=== PATIENT | female | born 1970 | race Caucasian/White ===

== ENCOUNTER 2022-02-17 13:24 | Day surgery (SDC) | payer MEDICARE ==
[2022-02-17] MEDS ORDERED: BUPIVACAINE 0.5% VIAL IJ ONE (13:25)
[2022-02-17] MEDS ORDERED: Depo-Medrol 40 MG/ML IM ONE (13:25)
[2022-02-17] MEDS ORDERED: Lactated Ringers 1,000 ML IV ONE (15:37)
[2022-02-17] MEDS ORDERED: DIPRIVAN 200 MG/20 ML IV ONE (16:09)
--- NOTE | 2022-02-17 18:51 | XRAY ---
12 seconds fluoroscopy time in surgery for intra-articular injection of the left shoulder.
--- NOTE | 2022-02-17 18:51 | XRAY ---
Indication: Left shoulder injection. Intraoperative fluoroscopy provided for 12 seconds. Single digital spot image submitted for interpretation demonstrates needle tip projecting over the left glenohumeral joint superiorly. Small amount of contrast injected for needle tip placement. Correlate with intraoperative findings/report.
== END 2022-02-17 16:33 | disposition home or self-care (01) ==
LOC: SDC-PAIN 13:24
PROVIDERS: ATTEND Psychiatry & Neurology Pain Medicine
DX: M19.012 Primary osteoarthritis, left shoulder (principal); Z79.899 Other long term (current) drug therapy
CPT/HCPCS: 20610; 73030; 77002; J1030; J2704; Q9966

== ENCOUNTER 2022-04-21 10:17 | Day surgery (SDC) | payer MEDICARE ==
[2022-04-21] MEDS ORDERED: Depo-Medrol 40 MG/ML IM ONE (10:18)
[2022-04-21] MEDS ORDERED: Marcaine Mpf 0.5% Vial 30 Ml IJ ONE (10:18)
[2022-04-21] MEDS ORDERED: Lactated Ringers 1,000 ML IV ONE (12:34)
[2022-04-21] MEDS ORDERED: DIPRIVAN 200 MG/20 ML IV ONE (12:43)
--- NOTE | 2022-04-21 14:00 | XRAY ---
Indication: Right hip and right greater trochanter bursa injections. Intraoperative fluoroscopy provided for 44 seconds. 3 digital spot image submitted for interpretation demonstrates needle tip projecting lateral to the right femur neck and greater trochanter. Small amount of contrast injected for both needle tip placement. Correlate with intraoperative findings/report.
--- NOTE | 2022-04-21 16:45 | XRAY ---
44 seconds of fluoroscopy was used in surgery for a right hip intra-articular and greater trochanteric bursa injections.
== END 2022-04-21 13:11 | disposition home or self-care (01) ==
LOC: SDC-PAIN 10:17
PROVIDERS: ATTEND Psychiatry & Neurology Pain Medicine
DX: M16.11 Unilateral primary osteoarthritis, right hip (principal); M70.61 Trochanteric bursitis, right hip; I10 Essential (primary) hypertension; Z79.899 Other long term (current) drug therapy
CPT/HCPCS: 20610; 73502; 77002; J1030; J2704; Q9966

== ENCOUNTER 2024-09-20 15:10 | Day surgery (SDC) | payer MEDICARE ==
[2024-09-20] MEDS ORDERED: Depo-Medrol 40 MG/ML IM ONE (15:11)
[2024-09-20] MEDS ORDERED: BUPIVACAINE 0.5% VIAL IJ ONE (15:11)
[2024-09-20] MEDS ORDERED: DIPRIVAN 200 MG/20 ML IV ONE (16:02)
--- NOTE | 2024-09-20 21:51 | XRAY ---
Indication: Left hip and greater trochanter bursa injection. Intraoperative fluoroscopy provided for 13 seconds. 2 digital spot images submitted for interpretation demonstrates needle tip projecting lateral to left femur neck. Second needle tip lateral to greater trochanter. Small amount of contrast injected for needle tip placement. Correlate with intraoperative findings/report.
--- NOTE | 2024-09-21 08:24 | XRAY ---
13 seconds of fluoroscopy was used in surgery for a left intra-articular hip and greater trochanteric bursa injection.
== END 2024-09-20 16:38 | disposition home or self-care (01) ==
LOC: SDC-PAIN 15:10
PROVIDERS: ATTEND Psychiatry & Neurology Pain Medicine
DX: M16.12 Unilateral primary osteoarthritis, left hip (principal)
CPT/HCPCS: 20610; 73502; 77002; J2704; Q9966